=== PATIENT | male | born 1960 | race Caucasian/White ===

== ENCOUNTER 2022-09-03 16:06 | Emergency (ER) | payer OTHER ==
[~2022-09-03] VITALS: Ht 182.9 cm; Wt 117.9 kg
[2022-09-03 16:10] VITALS: BP_SYST 113; PULSE 67; RESP 17; TEMP 98; O2SAT 95
--- NOTE | 2022-09-03 16:10 | NUR ---
Placed in room 02 . Placed on machine shop lead man, blood pressure machine and pulse oximeter. To gown for exam. Side rails up. Report given to SHAE LAW.
--- NOTE | 2022-09-03 16:15 | NUR ---
BIB ALS DUE TO ALTERED MENTAL STATUS, A/OX1, AMBULATORY WITH ASSISTANCE. PT KNOWN TO HAVE COLON CA IV. PT WAS FOUND IN THE THE TOILET AND WAS CONFUSED.
--- NOTE | 2022-09-03 16:30 | NUR ---
NO NAUSEA AB=ND VOMITING, DENIES PAIN, NO ACUTE DISCOMFORT AND SYMPTOMS.
[2022-09-03 16:34] VITALS: BP_SYST 114; PULSE 78
[2022-09-03 17:11] LABS: BASOPHILS % (AUTO) 0.4 % (0.0-2.0); EOSINOPHILS % (AUTO) 0.1 % (0.0-4.0); HEMATOCRIT 35.5 % (36-54); LYMPHOCYTES # (AUTO) 0.9 K/uL (1.0-5.5); LYMPHOCYTES % (AUTO) 10.1 % (20.5-51.5); MEAN CORPUSCULAR HEMOGLOBIN 28 pg (27-31); MEAN CORPUSCULAR HGB CONC 31 % (32-36); MEAN CORPUSCULAR VOLUME 92 fL (79.0-98.0); MONOCYTES # (AUTO) 0.7 K/uL (0.0-1.0); MONOCYTES % (AUTO) 7.6 % (1.7-9.3); NEUTROPHILS # (AUTO) 7.5 K/uL (1.8-7.7); NEUTROPHILS % (AUTO) 81.8 % (40.0-70.0); PLATELET COUNT (AUTO) 361 K/uL (130-430); RED BLOOD CELL COUNT(AUTO) 3.87 MIL/uL (4.2-6.2); RED CELL DISTRIBUTION WIDTH 23.7 % (9.0-15.0); WHITE BLOOD COUNT (AUTO) 9.2 K/uL (4.8-10.8)
[2022-09-03 17:18] LABS: ANION GAP 10 (5-15); CALCIUM 8.8 mg/dL (8.4-11.0); CHLORIDE 103 mmol/L (98-107); CREATININE 0.95 mg/dL (0.55-1.30); GFR AFRICAN AMERICAN 104 mL/min (>90); GLUCOSE 134 mg/dL (74-106); UREA NITROGEN, BLOOD 19 mg/dL (8-21)
[2022-09-03 17:19] LABS: INR 1.2 (0.80-1.20); PROTHROMBIN TIME 12.7 SECS (9.5-12.5)
[2022-09-03 17:51] LABS: ALANINE AMINOTRANSFERASE 40 U/L (12-78); ALBUMIN 2.1 g/dL (3.4-4.8); ASPARTATE AMINOTRANSFERASE 63 U/L (10-37); TOTAL BILIRUBIN 2.8 mg/dL (0.0-1.0)
[2022-09-03 17:55] LABS: ACETAMINOPHEN < 1 ug/mL (1-30); ALCOHOL, BLOOD < 3 mg/dL (<10)
[2022-09-03 17:57] LABS: ACETONE, SERUM NEGATIVE (NEGATIVE)
[2022-09-03] MEDS ORDERED: NACL 0.9% 1,000 ML IV ONE (18:00)
--- NOTE | 2022-09-03 18:35 | NUR ---
HOPE TRANSFER INFO SPOKE WITH KARINA PT GOING TO [facility] ER REPORT NUMBER [phone] [facility] [employer]
[2022-09-03 18:59] LABS: BLOOD, URINE 1+ (NEGATIVE); CLARITY/URINE CLEAR (CLEAR); GLUCOSE,URINE NEGATIVE (NEGATIVE); KETONES,URINE TRACE (NEGATIVE); LEUKOCYTE ESTERASE ,URINE NEGATIVE (NEGATIVE); NITRITE, URINE NEGATIVE (NEGATIVE); PROTEIN URINE TRACE (NEGATIVE)
[2022-09-03 19:07] LABS: BILIRUBIN,URINE 1+ (NEGATIVE); COLOR,URINE AMBER (YELLOW)
[2022-09-03 19:08] LABS: BACTERIA,URINE FEW /HPF (None Seen); WBC,URINE 0-3 /HPF (0-3)
[2022-09-03 19:09] LABS: BARBITURATE, URINE NEGATIVE (NEG <=200); BENZODIAZEPINE, URINE NEGATIVE (NEG <=150); CANNABINOID, URINE NEGATIVE (NEG <=50); COCAINE, URINE NEGATIVE (NEG <=150); METHAMPHETAMINES SCREEN,URINE NEGATIVE (NEG <=500); MUCUS,URINE 1+ /LPF (None Seen); OPIATE, URINE NEGATIVE (NEG <=100); PHENCYCLIDINE SCREEN,URINE NEGATIVE (NEG <=25); UR TRICYCLIC ANTIDEPRESSANTS NEGATIVE (NEG <=300); URINE AMPHETAMINE NEGATIVE (NEG <=500); URINE METHADONE NEGATIVE (NEG <=200); URINE OXYCODONE SCREEN NEGATIVE (NEG <=100); URINE PROPOXYPHENE SCREEN NEGATIVE (NEG <=300)
--- NOTE | 2022-09-03 19:23 | NUR ---
DAUGHTER AT THE BEDSIDE
[2022-09-03 20:01] VITALS: BP_SYST 114; PULSE 89; RESP 22; TEMP 98; O2SAT 96
--- NOTE | 2022-09-03 20:01 | NUR ---
INFORMATION SECURITY ANALYST IS HERE FOR TRANSPORT
--- NOTE | 2022-09-03 20:03 | NUR ---
Patient to be transferred to [facility] [place]. Is being transferred due to higher level of care. Receiving facility has accepting physician and available space. ER physician has signed transfer form. Patient or responsible constitution party has agreed to transfer and signed form. Patient belongings inventoried and will be sent with patient. Copy of nursing notes, lab reports, EKG, Physicians Orders and X-rays to be sent with patient. Report called to ILIANA at receiving facility. Receiving physician is Wesley. ambulance service has been called for transfer. ETA is 20 MINUTES.
== END 2022-09-03 20:03 | disposition short-term general hospital (02) ==
LOC: SED 16:06
DX: R41.82 Altered mental status, unspecified (principal); E86.0 Dehydration; R17 Unspecified jaundice; Z85.038 Personal history of other malignant neoplasm of large intestine; Z79.899 Other long term (current) drug therapy; Z20.822 Contact with and (suspected) exposure to COVID-19
CPT/HCPCS: 99285; 70450; 71045; 87426; 80307; 80053; 82009; 82140; 82550; 83880; 85025; 85610; 85730; 84484; 36415; 93005; 76376; 83605; 82397; 81000; G0480; G0481; G0482